=== PATIENT | female | born 1980 | race Hispanic/Latino ===

== ENCOUNTER 2023-03-09 05:13 | Emergency (ER) | payer BC ==
[~2023-03-09] VITALS: Ht 157.5 cm; Wt 147.0 kg
[2023-03-09] MEDS ORDERED: KETOROLAC 60 MG VIAL (30MG/ML) IM ONE (06:30)
[2023-03-09] MEDS ORDERED: CYCLOBENZAPRINE HCL 10 MG TABLET PO ONE (06:30)
[2023-03-09] MEDS ORDERED: METH-662 PO (09:25)
[2023-03-09] MEDS ORDERED: IBUP-2070 PO (09:25)
[2023-03-09 09:31] VITALS: BP 140/66; PULSE 76; RESP 18; O2SAT 98
== END 2023-03-09 09:44 | disposition home or self-care (01) ==
LOC: EDH 05:13
DX: S30.0XXA Contusion of lower back and pelvis, initial encounter (principal); E11.9 Type 2 diabetes mellitus without complications; I10 Essential (primary) hypertension; Z88.0 Allergy status to penicillin; Z90.49 Acquired absence of other specified parts of digestive tract; Z98.890 Other specified postprocedural states; W18.39XA Other fall on same level, initial encounter; Y93.89 Activity, other specified; Y92.89 Other specified places as the place of occurrence of the external cause; Y99.8 Other external cause status
CPT/HCPCS: 99284; 71046; 73010; 96372; J1885

== ENCOUNTER 2023-09-06 08:49 | Emergency (ER) | payer BC ==
[~2023-09-06] VITALS: Ht 157.5 cm; Wt 145.1 kg
[~2023-09-06 08:49] MED LIST: IBUP-2070 PO; METH-662 PO
[2023-09-06 08:51] VITALS: BP 200/109; PULSE 93; RESP 16
[2023-09-06] MEDS: KETOROLAC 15MG/ML VIAL (15MG/ML) IM ONE (09:44)
[2023-09-06] MEDS: ORPHENADRINE CITRATE 30 MG/ML ML IM ONE (09:44)
[2023-09-06] MEDS ORDERED: PRED10TA23 PO (11:16)
[2023-09-06] MEDS ORDERED: CYCL7.5T27 PO (11:16)
[2023-09-06] MEDS ORDERED: NAPR375T6 PO (11:16)
== END 2023-09-06 11:45 | disposition home or self-care (01) ==
LOC: EDH 08:49
DX: M54.41 Lumbago with sciatica, right side (principal); E11.9 Type 2 diabetes mellitus without complications; I10 Essential (primary) hypertension; E03.9 Hypothyroidism, unspecified; Z90.49 Acquired absence of other specified parts of digestive tract; Z98.890 Other specified postprocedural states
CPT/HCPCS: 99284; 71045; 81025; 96372 ×2; J1885; J2360